=== PATIENT | male | born 1975 | race Caucasian/White ===

== ENCOUNTER 2024-12-11 18:47 | Emergency (ER) | payer OTHER ==
[~2024-12-11] VITALS: Ht 180.3 cm; Wt 158.8 kg
[~2024-12-11 18:47] MED LIST: AMOXICILLIN; ASPI325 PO; BUPR100ER; CEPH500 PO; CRUTCH3 USE; Crutch1 EACH MISC; ESCI10; ESCI10 PO; HYDACE5 PO; IBUP800 PO; MULVITA PO; Motrin600 MG PO; NAPR500 PO; NEOPOLHYDS OT; OXYACE5T PO; PENVK500 PO; PERCOCET; Percocet 5-3251 EACH PO; Prinivil5 MG; QUET25; RXANTBENOT AU; RXHYDACE PO; RXNAPNA550 PO; RXOXYACE PO; RXPENVK250 PO; TOBR.3OPSO OP
[2024-12-11 20:00] LABS: BASOPHILS ABSOLUTE AUTO 0.11 K/mm3 (0.00-0.23); BASOPHILS PERCENT AUTO 1 % (0-2); EOSINOPHILS ABSOLUTE AUTO 0.71 K/mm3 (0.00-0.68); EOSINOPHILS PERCENT AUTO 6 % (0-6); Hematocrit 38.8 % (37.0-53.0); Hemoglobin 12.9 g/dL (13.5-17.5); IMMATURE GRAN ABSOLUTE AUTO 0.04 K/mm3 (0.00-0.10); IMMATURE GRAN PERCENT AUTO 0 % (0-1); LYMPHOCYTES ABSOLUTE AUTO 4.32 K/mm3 (0.84-5.20); LYMPHOCYTES PERCENT AUTO 35 % (21-46); MONOCYTES ABSOLUTE AUTO 0.85 K/mm3 (0.16-1.47); MONOCYTES PERCENT AUTO 7 % (4-13); Mean Corpuscular HGB 27.4 pg (26.0-34.0); Mean Corpuscular HGB Conc 33.2 g/dL (31.5-36.5); Mean Corpuscular Volume 83 fL (80-100); Mean Platelet Volume 11.9 fL (9.1-12.4); NEUTROPHILS PERCENT AUTO 51 % (41-73); Platelet Count 257 K/mm3 (150-400); RDW Coefficient Variation 14.6 % (11.7-14.2); RDW Standard Deviation 44.1 fL (35.1-46.3); White Blood Cell Count 12.33 K/mm3 (4.00-11.30)
[2024-12-11 20:19] LABS: Albumin/Globulin Ratio 1.1 (0.8-1.8); Bilirubin, Total 0.3 mg/dL (0.1-1.0); Bun/Creatinine Ratio 19.7 (12.0-20.0); Calcium, Blood 9.3 mg/dL (8.5-10.1); Creatinine, Blood 1.27 mg/dL (0.60-1.20); Globulin, Blood 3.7 g/dL (2.2-4.0); Potassium, Blood 3.8 mmol/L (3.5-5.5); Total Protein, Blood 7.7 g/dL (6.4-8.2)
[2024-12-11 21:05] LABS: Source, Urine Clean Catch
[2024-12-11 21:18] LABS: Appearance, Urine Turbid (Clear); Bilirubin, Urine Neg (Neg); Blood, Urine 3+ (Neg); Glucose Qualitative, Urine Neg (Neg); Ketones, Urine Neg (Neg); Leukocyte Esterase, Urine 3+ (Neg); Nitrite, Urine Neg (Neg); Protein, Urine 2+ (Neg); Urobilinogen, Urine NORM (Normal)
[2024-12-11 21:30] LABS: Color, Urine Pale Yellow (P-Yellow)
[2024-12-11 21:31] LABS: Bacteria Many /hpf; Mucus Light (0-Heavy); Red Blood Cells, Urine 0-2 /hpf (0-2); Squamous Epithelial Cells Mod /hpf (Few); Transitional Epithelial Cells Rare /hpf (0-Rare); White Blood Cells, Urine TNTC /hpf (0-5)
[2024-12-11] MEDS ORDERED: CefTRIAXone Sodium 1,000 MG in NS 100 ML IV ONE (22:05)
[2024-12-11] MEDS ORDERED: RX Prepack 6 Tabs Oxycodone 5mg UD ONE (22:50)
[2024-12-11] MEDS ORDERED: OxyCODONE HCL 5 MG TAB PO ONE (22:50)
[2024-12-11 23:00] VITALS: BP 152/94
[2024-12-11] MEDS ORDERED: Roxicodone5 MG PO (23:00)
[2024-12-11] MEDS ORDERED: CEFD300 PO (23:00)
== END 2024-12-11 23:21 | disposition home or self-care (01) ==
LOC: ER 18:47
PROVIDERS: Emergency Medicine
DX: N10 Acute pyelonephritis (principal); N18.9 Chronic kidney disease, unspecified; Z90.5 Acquired absence of kidney; Z91.040 Latex allergy status; Z88.2 Allergy status to sulfonamides; Z88.1 Allergy status to other antibiotic agents; Z79.899 Other long term (current) drug therapy
CPT/HCPCS: 76770; 80053; 81001; 85025; 87086; 93005; 93010; 96374; 99284-25; A9270; J0696